=== PATIENT | female | born 1960 | race Caucasian/White ===

== ENCOUNTER 2021-08-30 12:23 | Emergency (ER) | payer MEDICAID, SELFPAY ==
--- NOTE | ~2021-08-30 | CT_ITS ---
EXAMINATION: CT ABDOMEN AND PELVIS WITHOUT CONTRAST CLINICAL INFORMATION: lower abdominal pain x 1 week already on augmentin . COMPARISON: No pertinent prior studies are available for comparison. TECHNIQUE: Multidetector volumetric imaging was performed from the superior aspect of the liver through the pubic symphysis without contrast per request. Sagittal and coronal reformatted images were obtained on the technologist workstation. This CT examination was performed using dose optimization techniques as appropriate, variously including the following: *Automated exposure control *Adjustment of mA and/or kV according to patient size (this includes techniques or standardized protocols for targeted exams where dose is matched to indication/reason for exam; i.e. extremities or head) *Use of iterative reconstruction technique DLP: 1724 mGy-cm. FINDINGS: LUNG BASES: Minimal linear atelectasis or LIVER, GALLBLADDER, BILIARY TREE: The non-contrast liver is normal in size, shape, and attenuation. No focal hepatic lesion or biliary ductal dilatation is present. The gallbladder surgically absent. PANCREAS: Unremarkable. SPLEEN: Unremarkable. ADRENAL GLANDS: Unremarkable. KIDNEYS AND URETERS: The kidneys are normal in size, shape, and attenuation. No hydronephrosis, hydroureter, or calculi seen. No perinephric stranding. BLADDER: Unremarkable. GASTROINTESTINAL TRACT: There is scattered diverticulosis more so in the sigmoid colon. There is focal colonic wall thickening and pericolonic inflammatory change the region the sigmoid colon most consistent with sequela of diverticulitis. There are prominent pericolonic lymph nodes likely reactive in nature in this region. No obstructive changes seen. No free air or discrete drainable collection. More proximal colon is grossly unremarkable. Appendix is presumably surgically absent. Small bowel unremarkable. Patient is status post gastric sleeve surgery. ABDOMINAL WALL: No significant hernia is appreciated. LYMPHOVASCULAR STRUCTURES: Minimal vascular calcification within the aorta iliac system. IVC filter noted.. PELVIC VISCERA: Unremarkable. OSSEUS STRUCTURES: Degenerative changes in the spine more so at L5/S1 CT/CT abdomen pelvis wo con IMPRESSION: Scattered diverticulosis more so in the sigmoid colon where there is surrounding pericolonic inflammatory changes suggesting diverticulitis. I do not appreciate any discrete abscess or obstructive change. No free air. Chronic appearing changes otherwise as described.
[2021-08-30 12:44] VITALS: BP 138/101; PULSE 83; RESP 20; TEMP 36.6; O2SAT 96; BMI 50.7
[2021-08-30 13:41] LABS: MANUAL DIFF FLAG NO
[2021-08-30 13:42] LABS: Basophils Percent Auto 0.7 % (0-2); Eosinophils Absolute Auto 0.1 X10*3/uL (0.0-0.4); Eosinophils Percent Auto 1.3 % (0-4); Hematocrit 40.3 % (37.0-47.0); Hemoglobin 13.5 g/dl (12.0-16.0); Imm Gran Abs Auto 0.03 X10*3/uL (0.00-0.03); Imm Gran Pct Auto 0.5 % (0.0-0.4); Lymphocytes Absolute Auto 2.4 X10*3/uL (1.2-4.9); Lymphocytes Percent Auto 38.9 % (20-40); Mean Corpuscular HGB Conc 33.5 g/dl (31.0-35.0); Mean Corpuscular Hemoglobin 30.3 pg (27.0-33.0); Mean Corpuscular Volume 90.6 fL (80.0-98.0); Mean Platelet Volume 11.1 fL (9.4-12.3); Monocytes Percent Auto 15.9 % (2-11); Neutrophils Absolute Auto 2.6 x10*3/uL (2.0-8.3); Neutrophils Percent Auto 42.7 % (45-73); Platelet Count 177 X10*3/uL (160-400); Red Blood Count 4.45 X10*6/uL (4.20-5.50); Red Cell Distribution Width 13.2 % (11.0-16.0); White Blood Count 6.1 X10*3/uL (4.8-10.8)
[2021-08-30 13:55] LABS: Anion Gap 14 (12-20); Blood Urea Nitrogen 11 mg/dL (9-16); Calcium 9.3 mg/dL (8.4-10.2); Carbon Dioxide 26 mmol/L (22-29); Chloride 103 mmol/L (96-108); Creatinine Clr Calc Pharmacy 93.7; Estimated Glomerular Filt Rate > 60; Glucose Random 93 mg/dL (60-115); Potassium 4.7 mmol/L (3.3-5.1); Sodium 138 mmol/L (135-145)
--- NOTE | 2021-08-30 14:59 | ED.ABDPAIN ---
HPI - Abdominal Pain General Chief Complaint: GI Bleed Stated Complaint: L Hand Swelling/Pain ? Bite on Back Time Seen by Provider: 08/30/21 14:26 Source: patient Mode of arrival: ambulatory Limitations: no limitations History of Present Illness HPI narrative: 61 yo female with hx of DVT on eliquis, HTN, s/p gastric sleeve, appendectomy, hernia repair, cholecystectomy was seen at [facility] in [place] where she is from on 08/23 had recent MRI for ?uterine mass and was called and told about diverticulitis infection. On 08/23 sent home on levofloxacin, flagyl and zofran. She was told to see a GI doctor - cannot get appointment until October. She is here visiting a friend and notes that her abdominal pain, bloody stools with clots, fevers/chills, and sometimes feels mucous come out has not improved. She is taking medications but does note the flagyl is upsetting her stomach. MD elicited complaint: abdominal pain Pertinent past history: diverticulitis Onset (ago): week(s) (1) Pain Consistency: constant Location: other (lower abdomen) Severity: moderate Quality: cramping, aching and fullness Radiation: none Migration to: no migration Exacerbating factors: medication and movement Relieving factors: nothing Context: recent antibiotic use and history of similar episodes Associated symptoms: nausea, diarrhea, fever, chills and hematochezia Related Data Allergies Allergy/AdvReac Type Severity Reaction Status Date / Time Iodinated Contrast Media Allergy Unknown Verified 08/30/21 12:49 [IV Contrast Dye] promethazine [From Phenergan] Allergy Weakness Verified 08/30/21 12:49 Review of Systems Review of Systems Constitutional : No Weight loss, pos Fever, pos Chills ENT/Mouth : No sore throat, No Rhinorrhea Eyes: No Swelling, No Redness Cardiovascular : No Chest Pain, No SOB, NoEdema Respiratory : No Cough, No Sputum, No Wheezing Gastrointestinal : Positive Nausea, no Vomiting, positive Diarrhea, positive abdominal Pain, pos Hematochezia, No Melena Genitourinary : No Dysuria, No Urinary Frequency, No Hematuria, No Urgency Musculoskeletal : No joint pain, No Myalgias, No Joint Swelling Skin : No Skin Lesions, No rash Neuro : pos Weakness, No Numbness, No Dizziness, No Headache Psych : No Anxiety/Panic, No Depression Heme/Lymph: No Bruising, No Lymphadenopathy Endocrine : No Polyuria, No Polydipsia All other systems reviewed and are negative. [facility] Past Medical History Attestation statement: The following information was validated with the patient. Medical History (Updated 08/30/21 @ 15:56 by Evelyn Perry DO) Diverticulitis DVT of axillary vein, acute right Hernia HTN (hypertension) Surgical History (Updated 08/30/21 @ 15:30 by Evelyn Perry DO) H/O gastric sleeve H/O hernia repair History of cholecystectomy S/P appendectomy Social History Social History (Updated 08/30/21 @ 15:15 by Evelyn Perry DO) Patient Tobacco Use Status: Never used Tobacco Advance Directives: Yes Advance Directives Information Provided: Yes Advance Directives on File: No Patient : No Physical Exam ED Vital Signs: Vital Signs - 24 hr 08/30/21 12:44 Temperature 97.8 F Pulse Rate 83 Respiratory Rate 20 Blood Pressure 138/101 H Pulse Oximetry 96 BMI result Body Mass Index 50.7 Appearance: Alert. Oriented X3. No acute distress. Eyes: Pupils equal, round and reactive to light. ENT: Pharynx normal. Neck: Normal inspection. Neck supple. CVS: Normal heart rate and rhythm. Pulses normal. Respiratory: No respiratory distress. Breath sounds normal. Abdomen: Soft and mild diffuse tenderness Rectum: no drainage or mass felt - light brown/pink stools. Back: small boil L shoulder no cellulitis no point Skin: Skin warm and dry. Normal skin color. Normal skin turgor. Extremities: No lower extremity edema. No calf ttp no swelling to left hand Neuro: Oriented X 3. No motor deficit. No sensory deficit. Course Course Course Narrative: Reevaluation(s) Reevaluation #1: signed out to Dr. Smith pending labs and re-evaluation MDM - Abdominal Pain MDM Narrative Medical decision making narrative: 61 yo female with hx of DVT on eliquis, HTN, s/p gastric sleeve, appendectomy, hernia repair, cholecystectomy reports hx of diverticulitis in the past. She was just seen and dx with acute sigmoid diverticulitis by MRI which was done for uterine lesion - treated with oral levofloxacin and flagyl. Still in pain with fevers, chills, nausea and some lower GI bleeding. At this time will need labs, occult stool, CT scan for abscess worsening infection, IV pain medications, IV zosyn. Dispo per results and findings. Lab Data Result diagrams: 08/30/21 13:35 08/30/21 13:35 Labs: Lab Results 08/30/21 08/30/21 Range/Units 13:35 13:35 WBC 6.1 (4.8-10.8) X10*3/uL RBC 4.45 (4.20-5.50) X10*6/uL Hgb 13.5 (12.0-16.0) g/dl Hct 40.3 (37.0-47.0) % MCV 90.6 (80.0-98.0) fL MCH 30.3 (27.0-33.0) pg MCHC 33.5 (31.0-35.0) g/dl RDW 13.2 (11.0-16.0) % Plt Count 177 (160-400) X10*3/uL MPV 11.1 (9.4-12.3) fL Immature Gran % (Auto) 0.5 H (0.0-0.4) % Neut % (Auto) 42.7 L (45-73) % Lymph % (Auto) 38.9 (20-40) % Billings % (Auto) 15.9 H (2-11) % Eos % (Auto) 1.3 (0-4) % Baso % (Auto) 0.7 (0-2) % Lymph # (Auto) 2.4 (1.2-4.9) X10*3/uL Billings # (Auto) 1.0 (0.1-1.2) X10*3/uL Eos # (Auto) 0.1 (0.0-0.4) X10*3/uL Baso # (Auto) 0.0 (0.0-0.2) X10*3/uL Abs Immat Gran (auto) 0.03 (0.00-0.03) X10*3/uL Absolute Neuts (auto) 2.6 (2.0-8.3) x10*3/uL Absolute Nucleated RBC 0.000 (0.0-0.012) X10*3/uL Nucleated RBC % (auto) 0.0 (0.0-0.2) /100WBC Sodium 138 (135-145) mmol/L Potassium 4.7 (3.3-5.1) mmol/L Chloride 103 (96-108) mmol/L Carbon Dioxide 26 (22-29) mmol/L Anion Gap 14 (12-20) BUN 11 (9-16) mg/dL Creatinine 0.88 (0.5-1.4) mg/dL Estim Creat Clear Calc 93.7 Estimated GFR > 60 Random Glucose 93 (60-115) mg/dL Calcium 9.3 (8.4-10.2) mg/dL Magnesium 1.9 (1.6-2.6) mg/dL Total Bilirubin 0.6 (0.0-1.0) mg/dL Direct Bilirubin 0.2 (0.0-0.5) mg/dL AST 17 (5-31) U/L ALT 10 (0-31) U/L Alkaline Phosphatase 41 (39-117) U/L Total Protein 7.5 (6.5-8.0) g/dL Albumin 4.0 (3.5-5.0) g/dL Lipase 67 (8-78) U/L Discharge Plan Discharge Clinical Impression: Lower gastrointestinal hemorrhage Abdominal pain Qualifiers: Abdominal location: lower abdomen, unspecified Qualified Code(s): R10.30 - Lower abdominal pain, unspecified Patient Disposition: Still a Patient
[2021-08-30 15:38] LABS: Alanine Aminotransferase 10 U/L (0-31); Alkaline Phosphatase 41 U/L (39-117); Aspartate Amino Transferase 17 U/L (5-31); Bilirubin Direct 0.2 mg/dL (0.0-0.5); Bilirubin Total 0.6 mg/dL (0.0-1.0); Lipase 67 U/L (8-78); Magnesium 1.9 mg/dL (1.6-2.6); Total Protein 7.5 g/dL (6.5-8.0)
[2021-08-30 16:08] VITALS: BP 147/93; PULSE 72; RESP 20; TEMP 36.6; O2SAT 97
[2021-08-30] MEDS: HYDROmorphone HCl 0.5 MG/0.5 ML SYRINGE IVPUSH (16:17)
[2021-08-30] MEDS: ondansetron HCL 4 MG/2 ML VIAL IVPUSH (16:17)
[2021-08-30] MEDS: Piperacillin Sodium/Tazobactam 3.375 GM in 0.9 % Sodium Chloride 50 ML IV (16:19)
[2021-08-30 16:22] VITALS: BP 146/85; PULSE 67; RESP 16; O2SAT 99
[2021-08-30 16:23] LABS: OBS Int Ctl Valid YES; OBS1 NEGATIVE (NEGATIVE)
[2021-08-30 16:28] LABS: INTERNATIONAL NORM RATIO 1.2 (0.9-1.1); Prothrombin Time 13.4 SEC (9.9-13.0)
[2021-08-30 16:34] LABS: COVID-19 Test Negative (Negative)
[2021-08-30] MEDS: Amoxicillin/Potassium Clav 875 MG TABLET PO (17:27)
[2021-08-30 17:29] VITALS: BP 144/85; PULSE 63
== END 2021-08-30 17:39 | disposition home or self-care (01) ==
PROVIDERS: Emergency Medicine; Emergency Provider Emergency Medicine Emergency Medical Services
DX: K92.2 Gastrointestinal hemorrhage, unspecified (principal); R10.30 Lower abdominal pain, unspecified; K57.32 Diverticulitis of large intestine without perforation or abscess without bleeding; I10 Essential (primary) hypertension; Z86.718 Personal history of other venous thrombosis and embolism; Z79.01 Long term (current) use of anticoagulants; Z98.84 Bariatric surgery status; Z90.49 Acquired absence of other specified parts of digestive tract; Z20.822 Contact with and (suspected) exposure to COVID-19
CPT/HCPCS: 36415; 74176; 80048; 80076; 82272; 83605; 83690; 83735; 85025; 85610; 87040; 87635; 96365; 96375; 99284; J1170; J2405; J2543